=== PATIENT | male | born 1995 | race Caucasian/White ===

== ENCOUNTER 2024-06-11 11:39 | Emergency (ER) | payer SELFPAY ==
[2024-06-11] MEDS: Ketorolac 30 MG/ML SDV IM ONE (12:31)
[2024-06-11 12:51] LABS: CORONAVIRUS COVID-19 NAA NEGATIVE (NEGATIVE); INFLUENZA A NAA NEGATIVE (NEGATIVE); INFLUENZA B NAA NEGATIVE (NEGATIVE); RESPIRATORY SYNCYTIAL VIR NAA NEGATIVE (NEGATIVE)
== END 2024-06-11 13:33 | disposition home or self-care (01) ==
LOC: MW.ED 11:39
DX: J32.9 Chronic sinusitis, unspecified (principal); Z88.1 Allergy status to other antibiotic agents; Z88.2 Allergy status to sulfonamides; Z75.8 Other problems related to medical facilities and other health care
CPT/HCPCS: 0241U; 87651; 96372; 99284; J1885; 99283